=== PATIENT | female | born 1960 | race Caucasian/White ===

== ENCOUNTER → 2018-12-22 | Outpatient (CLI) | payer OTHER ==
[~2018-12-22] MED LIST: ESCI20 PO; IBUP800 PO
[2018-12-22 13:31] LABS: Alanine Aminotransfer (ALT/SGP 28 U/L (12-78); Albumin, Blood 3.9 g/dL (3.4-5.0); Albumin/Globulin Ratio 1.1 (0.8-1.8); Alk Phos 77 U/L (50-136); Anion Gap 11 mmol/L (6-16); Aspartate Aminotrans (AST/SGOT 18 U/L (12-37); Bilirubin, Total 0.3 mg/dL (0.1-1.0); Blood Urea Nitrogen 16 mg/dL (8-24); Bun/Creatinine Ratio 19.8 (12.0-20.0); CO2, Blood 23 mmol/L (21-32); Calcium, Blood 8.8 mg/dL (8.5-10.1); Chloride, Blood 104 mmol/L (98-108); Creatinine, Blood 0.81 mg/dL (0.40-1.00); Globulin, Blood 3.5 g/dL (2.2-4.0); Glomerular Filtration Rate >60 (60-); Glucose, Blood 90 mg/dL (70-99); Potassium, Blood 4.8 mmol/L (3.5-5.5); Sodium, Blood 138 mmol/L (136-145); Total Protein, Blood 7.4 g/dL (6.4-8.2)
[2018-12-23 07:14] LABS: HIV SCREEN 4TH GENERATION WRFX Non Reactive (Non Reactive)
[2018-12-24 05:07] LABS: CHLAMYDIA TRACHOMATIS, NAA Negative (Negative); NEISSERIA GONORRHOEAE, NAA Negative (Negative)
== END | disposition home or self-care (01) ==
LOC: LAB 12:30 → LAB SHORT 12:30
PROVIDERS: Hospitalist
DX: Z11.3 Encounter for screening for infections with a predominantly sexual mode of transmission (principal); Z13.1 Encounter for screening for diabetes mellitus
CPT/HCPCS: 80053; 86803; 87389; 87491; 87591

== ENCOUNTER 2019-04-28 14:19 | Emergency (ER) | payer OTHER ==
[~2019-04-28] VITALS: Ht 157.5 cm; Wt 77.1 kg
[2019-04-28] MEDS ORDERED: Percocet 5-3251 EACH PO (15:16)
== END 2019-04-28 15:27 | disposition home or self-care (01) ==
LOC: ER 14:19
DX: M23.91 Unspecified internal derangement of right knee (principal); Z88.0 Allergy status to penicillin; Z79.899 Other long term (current) drug therapy; F43.10 Post-traumatic stress disorder, unspecified; F32.9 Major depressive disorder, single episode, unspecified; F41.9 Anxiety disorder, unspecified; F17.200 Nicotine dependence, unspecified, uncomplicated
CPT/HCPCS: 29505; 73562-RT; 99283-25